=== PATIENT | male | born 1990 | race Caucasian/White ===

== ENCOUNTER 2024-07-21 19:33 | Emergency (ER) | payer OTHER, SELFPAY ==
[2024-07-21 19:36] VITALS: BP 132/78
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
[2024-07-21 19:40] VITALS: BP 132/78
[2024-07-21 19:44] VITALS: BMI 25.5
[2024-07-21 20:00] VITALS: BP 101/44
[2024-07-21 21:00] VITALS: BP 105/46
== END 2024-07-21 22:32 ==
LOC: EMR 19:33
PROVIDERS: EMERGENCY PHYSICIAN Emergency Medicine
DX: S09.90XA Unspecified injury of head, initial encounter (principal); V89.2XXA Person injured in unspecified motor-vehicle accident, traffic, initial encounter; I10 Essential (primary) hypertension; F17.200 Nicotine dependence, unspecified, uncomplicated
CPT/HCPCS: 99284; 70450